=== PATIENT | female | born 1940 | race Caucasian/White ===

== ENCOUNTER 2016-06-04 09:20 | Emergency (ER) | payer MEDICARE, BC ==
[2016-06-04 10:07] VITALS: BP 149/67
--- NOTE | 2016-06-04 11:39 | UC ---
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 MUCOSA IS IRRITATED AND SORE. WORSE WITH EATING. SX STARTED THIS AM. pT HAS HAD THRUSH - History of Current Complaint Chief Complaint: UCGeneralIllness Stated Complaint: POSSIBLE THRUSH Time Seen by Provider: 06/04/16 10:58 Hx Obtained From: Patient Hx Last Menstrual Period: n/a Onset/Duration: Sudden Onset, Lasting Hours, Still Present Severity: Moderate Pain Intensity: 3 Cough: None Associated Signs & Symptoms: Negative: Negative, Dysphagia, Drooling, Wheezing, Hoarseness, Sinus Discomfort, Nasal Discharge, Fever, Vomiting, Rash - Allergies/Home Medications Allergies/Adverse Reactions: Allergies Allergy/AdvReac Type Severity Reaction Status Date / Time Aspirin Allergy Severe heart races Verified 06/04/16 10:07 PMH/Surg Hx/FS Hx/Imm Hx Endocrine History Of: Denies: Diabetes Cardiovascular History Of: Reports: Hypertension Denies: Pacemaker/ICD, Congestive Heart Failure Respiratory History Of: Reports: COPD GI/ History Of: Denies: Renal Disease - Surgical History Surgical History: Yes Surgery Procedure, Year, and Place: TUBAL LIGATION 1979; 2 X CATARACTS; - Family History Known Family History: Positive: Other - THYROID DZ Negative: Cardiac Disease, Hypertension, Diabetes - Social History Occupation: Retired Alcohol Use: None Substance Use Type: None Smoking Status (MU): Former Smoker Have You Smoked in the Last Year: No When Did the Patient Quit Smoking/Using Tobacco: 2012 Review of Systems Constitutional: Negative Skin: Negative Eyes: Negative ENT: Other - SEE HPI Respiratory: Negative Cardiovascular: Negative Gastrointestinal: Negative Genitourinary: Negative Motor: Negative Neurovascular: Negative Musculoskeletal: Negative Neurological: Negative Psychological: Negative All Other Systems Reviewed And Are Negative: Yes Physical Exam Triage Information Reviewed: Yes Appearance: Well-Appearing, No Pain Distress, Well-Nourished Vital Signs: Initial Vital Signs Temp 97.9 F 06/04/16 10:03 Pulse 72 06/04/16 10:03 Resp 14 06/04/16 10:03 BP 149/67 06/04/16 10:03 Pulse Ox 95 06/04/16 10:03 Vital Signs Reviewed: Yes Eyes: Positive: Conjunctiva Clear. Negative: Discharge ENT: Positive: Hearing grossly normal, Pharyngeal erythema, TMs normal, Other: - RED MUCOSA WITH WHITE PATCHES. Negative: Tonsillar swelling, Tonsillar exudate, Trismus, Muffled/hoarse voice Neck: Positive: Supple, Nontender, No Lymphadenopathy Respiratory: Positive: Lungs clear, Normal breath sounds, No respiratory distress, No accessory muscle use Cardiovascular: Positive: RRR, No Murmur Musculoskeletal Exam: Normal Neurological: Positive: Alert, Muscle Tone Normal Psychological: Positive: Age Appropriate Behavior Skin Exam: Normal Throat Pain/Nasal Course/Dx - Differential Dx/Diagnosis Differential Diagnosis/HQI/PQRI: Pharyngitis, Tonsillitis, Other - THRUSH Provider Diagnoses: THRUSH Discharge - Discharge Plan Condition: Stable Disposition: HOME Prescriptions: Nystatin SUSPENSION* 500,000 units .SEE ORDER QID #1 bottle Patient Education Materials: Oral Candidiasis (ED), Nystatin (By mouth) Referrals: Jonah Barnes MD [Primary Care Provider] - If Needed
== END 2016-06-04 11:48 | disposition home or self-care (01) ==
LOC: UCCORT 09:20
DX: B37.0 Candidal stomatitis (principal); Z85.819 Personal history of malignant neoplasm of unspecified site of lip, oral cavity, and pharynx; Z92.3 Personal history of irradiation; Z88.6 Allergy status to analgesic agent; I10 Essential (primary) hypertension; J44.9 Chronic obstructive pulmonary disease, unspecified; Z87.891 Personal history of nicotine dependence
CPT/HCPCS: 99212; G0463

== ENCOUNTER 2016-12-05 08:42 | Emergency (ER) | payer MEDICARE, BC ==
--- NOTE | 2016-12-05 09:04 | UC ---
Throat Pain/Nasal George HPI - HPI Summary HPI Summary: 76 yo female presents here with oral thrush on steroid inhaler she rinse mouth after use throat ca with RT - History of Current Complaint Chief Complaint: UCGI Stated Complaint: ORAL COMPLAINT Time Seen by Provider: 12/05/16 09:03 Hx Obtained From: Patient Hx Last Menstrual Period: n/a Onset/Duration: Gradual Onset, Lasting Days Severity: Mild Pain Intensity: 0 Pain Scale Used: 0-10 Numeric Associated Signs & Symptoms: Positive: Rash - Allergies/Home Medications Allergies/Adverse Reactions: Allergies Allergy/AdvReac Type Severity Reaction Status Date / Time Aspirin Allergy Severe heart races Verified 12/05/16 09:03 Home Medications: Home Medications Furosemide TAB* [Lasix TAB*] 40 mg PO DAILY 12/05/16 [History Confirmed 12/05/16 ] Oxygen Inhalation At Bedtime 2 unit INH BEDTIME 12/05/16 [History Confirmed 10/17] Tiotropium [place]-Olodaterol [Stiolto Respimat 2.5-2.5 Mcg/Act] 2 aer IN QAM [History Confirmed 12/05/16] PMH/Surg Hx/FS Hx/Imm Hx Previously Healthy: Yes Cancer History: Other Other Cancer History: throat - Surgical History Surgical History: Yes Surgery Procedure, Year, and Place: TUBAL LIGATION 1979; 2 X CATARACTS; - Family History Known Family History: Positive: None, Other - THYROID DZ Negative: Cardiac Disease, Hypertension, Diabetes - Social History Alcohol Use: None Substance Use Type: None Smoking Status (MU): Former Smoker Have You Smoked in the Last Year: No When Did the Patient Quit Smoking/Using Tobacco: 2012 Review of Systems Constitutional: Negative Skin: Negative Eyes: Negative ENT: Negative, Other - thrush Respiratory: Negative Cardiovascular: Negative Gastrointestinal: Negative Genitourinary: Negative Motor: Negative Neurovascular: Negative Musculoskeletal: Negative Neurological: Negative Psychological: Negative All Other Systems Reviewed And Are Negative: Yes Physical Exam Triage Information Reviewed: Yes Appearance: Well-Appearing, No Pain Distress, Well-Nourished Vital Signs: Initial Vital Signs Temp 97.9 F 12/05/16 08:53 Pulse 76 12/05/16 08:53 Resp 20 12/05/16 08:53 BP 120/64 12/05/16 08:53 Vital Signs Reviewed: Yes Eyes: Positive: Conjunctiva Clear ENT: Positive: Hearing grossly normal, Other: - white curdy d/c on tongue/under tongue and cheeks. Negative: Nasal congestion, TMs normal, Tonsillar swelling, Tonsillar exudate Neck: Positive: Supple Respiratory: Positive: Lungs clear, Normal breath sounds, No respiratory distress, No accessory muscle use Cardiovascular: Positive: RRR, No Murmur Musculoskeletal: Positive: ROM Intact, No Edema Neurological: Positive: Alert Psychological Exam: Normal Skin Exam: Normal Throat Pain/Nasal Course/Dx - Differential Dx/Diagnosis Provider Diagnoses: oral thrush Discharge - Discharge Plan Condition: Stable Disposition: HOME Prescriptions: Nystatin SUSPENSION* 100,000 unit .SEE ORDER QID PRN #[id number] PRN Reason: Rash Patient Education Materials: Oral Candidiasis (ED) Referrals: Jonah Barnes MD [Primary Care Provider] - If Needed
[2016-12-05 09:22] VITALS: BP 120/64
== END 2016-12-05 09:39 | disposition home or self-care (01) ==
LOC: UCCORT 08:42
DX: B37.0 Candidal stomatitis (principal); Z85.818 Personal history of malignant neoplasm of other sites of lip, oral cavity, and pharynx; Z98.49 Cataract extraction status, unspecified eye; Z88.6 Allergy status to analgesic agent; Z87.891 Personal history of nicotine dependence
CPT/HCPCS: 99212; G0463

== ENCOUNTER 2018-07-04 11:33 | Emergency (ER) | payer MEDICARE, BC ==
[2018-07-04 14:02] VITALS: BP 142/59
--- NOTE | 2018-07-04 14:59 | UC ---
Throat Pain/Nasal George HPI - HPI Summary HPI Summary: 77-year-old female with history of COPD presents with progressively worsening URI symptoms over the past 4-5 days. Complains of nasal congestion, frontal sinus pressure, bilateral ear fullness, mild sore throat, and a loose, occasionally productive cough. Denies fever, chills, chest pain, shortness of breath, wheezing, abdominal pain, nausea, vomiting, or diarrhea. - History of Current Complaint Chief Complaint: UCGeneralIllness Stated Complaint: SINUS CONGESTION Time Seen by Provider: 07/04/18 14:46 Hx Obtained From: Patient Hx Last Menstrual Period: n/a Pain Intensity: 0 - Allergies/Home Medications Allergies/Adverse Reactions: Allergies Allergy/AdvReac Type Severity Reaction Status Date / Time aspirin Allergy Palpitation Verified 07/04/18 11:58 s Home Medications: Home Medications Vitamin A CAP* 25,000 units PO DAILY 07/04/18 [History Confirmed 07/04/18] guaiFENesin [Mucinex] 600 mg PO BID 07/04/18 [History Confirmed 07/04/18] PMH/Surg Hx/FS Hx/Imm Hx Previously Healthy: Yes Endocrine History: Hypothyroidism Cardiovascular History: Hypertension Respiratory History: COPD - Surgical History Surgical History: Yes Surgery Procedure, Year, and Place: TUBAL LIGATION 1979; 2 X CATARACTS; - Family History Known Family History: Positive: None, Other - THYROID DZ Negative: Cardiac Disease, Hypertension, Diabetes - Social History Occupation: Retired Lives: Alone Alcohol Use: None Substance Use Type: None Smoking Status (MU): Former Smoker Have You Smoked in the Last Year: No When Did the Patient Quit Smoking/Using Tobacco: 2012 Review of Systems All Other Systems Reviewed And Are Negative: Yes Constitutional: Negative: Fever, Chills Skin: Negative: Rash Eyes: Negative: Drainage, Eye Redness ENT: Positive: Sore Throat, Ear Ache, Nasal Discharge, Sinus Congestion, Sinus Pain/Tenderness Respiratory: Positive: Cough. Negative: Shortness Of Breath Cardiovascular: Negative: Palpitations, Chest Pain Gastrointestinal: Negative: Abdominal Pain, Vomiting, Diarrhea, Nausea Genitourinary: Positive: Negative Musculoskeletal: Positive: Negative Neurological: Positive: Negative Is Patient Immunocompromised?: No Physical Exam - Summary Physical Exam Summary: GENERAL APPEARANCE: Well developed, well nourished, alert and cooperative, and appears to be in no acute distress. EYES: Conjunctiva clear. No discharge. Vision is grossly intact. EARS: External auditory canals and tympanic membranes clear, hearing grossly intact. NOSE: Mild-moderate nasal congestion. Mild tenderness to frontal sinuses with percussion. THROAT: Mild pharyngeal erytheam. No tonsilar inflammation, swelling, exudate, or lesions. NECK: Neck supple, non-tender without lymphadenopathy. CARDIAC: Normal S1 and S2. No S3, S4 or murmurs. Rhythm is regular. There is no peripheral edema, cyanosis or pallor. Extremities are warm and well perfused. Capillary refill is less than 2 seconds. LUNGS: Clear to auscultation without rales, rhonchi, wheezing or diminished breath sounds. Loose non-productive cough. ABDOMEN: Positive bowel sounds. Soft, nondistended, nontender. No guarding or rebound. No masses or hepatosplenomegally. MUSKULOSKELETAL: ROM intact to all extremities. No joint erythema or tenderness. Normal muscular development. Normal gait. SKIN: Skin normal color, texture and turgor with no lesions or eruptions. Triage Information Reviewed: Yes Vital Signs: Initial Vital Signs Temp 97.6 F 07/04/18 11:57 Pulse 87 07/04/18 11:57 Resp 16 07/04/18 11:57 BP 110/67 07/04/18 11:57 Pulse Ox 94 07/04/18 11:57 Vital Signs Reviewed: Yes Throat Pain/Nasal Course/Dx - Course Course Of Treatment: 77-year-old female with history of COPD presents with progressively worsening URI symptoms over the past 4-5 days. Complains of nasal congestion, frontal sinus pressure, bilateral ear fullness, mild sore throat, and a loose, occasionally productive cough. Denies fever, chills, chest pain, shortness of breath, wheezing, abdominal pain, nausea, vomiting, or diarrhea. Afebrile. Vital signs stable. Exam reveals older adult female in no acute distress with a mild amount of nasal congestion, mild frontal sinus tenderness with percussion, mild pharyngeal erythema, clear bilateral breath sounds, and a loose nonproductive cough. Considering the progressive worsening of her symptoms and her history of COPD we'll treat her for an upper respiratory infection with a course of azithromycin as well as symptomatic treatment. She is to follow-up with a primary care provider in 5 days if symptoms do not improve. Anticipatory guidance and warning symptoms were reviewed with the patient. She verbalizes understanding and agrees with plan of care. - Differential Dx/Diagnosis Differential Diagnosis/HQI/PQRI: Influenza, Pharyngitis, Sinusitis, URI Provider Diagnosis: Upper respiratory infection with cough and congestion, COPD (chronic obstructive pulmonary disease) Discharge - Sign-Out/Discharge Documenting (check all that apply): Patient Departure All imaging exams completed and their final reports reviewed: No Studies - Discharge Plan Condition: Stable Disposition: HOME Prescriptions: Azithromyxin VISHNU (NF) [Z-Vishnu (Zithromax) 250 mg tabs #6] 2 tab PO .TODAY, THEN 1 DAILY #6 tab Patient Education Materials: Upper Respiratory Infection (ED) Referrals: Zayra Kessler MD [Primary Care Provider] - 5 Days (If no improvement in your symptoms.) Additional Instructions: Your symptoms are consistent with an upper respiratory infection. With your history of COPD we will treat your infection with an antibiotic. Take azithromycin 2 tabs today then 1 tab a day for next 4 days. Drink plenty of fluids to avoid dehydration especially if you are running any fever. Continue to use your inhaler as prescribed. Take over the counter acetaminophen (Tylenol) according to directions as needed for pain or fever. Use salt water gargles several times a day if you have a sore throat. You may also use Chloraseptic spray or Cepacol lonzenges according to directions which contain a numbing medication and can provide some temporary relief from your sore throat. Follow up with your primary care provider in 5 days if symptoms persist. Seek immediate medical attention in the emergency room if you have fever greater than 100.5 F despite taking acetaminophen or ibuprofen, have chest pain , difficulty breathing, are unable to swallow, or have any worsening of symptoms. - Billing Disposition and Condition Condition: STABLE Disposition: Home
== END 2018-07-04 15:17 | disposition home or self-care (01) ==
LOC: UCCORT 11:33
DX: J06.9 Acute upper respiratory infection, unspecified (principal); R05 Cough; R09.81 Nasal congestion; I10 Essential (primary) hypertension; J44.9 Chronic obstructive pulmonary disease, unspecified; Z88.8 Allergy status to other drugs, medicaments and biological substances; Z87.891 Personal history of nicotine dependence
CPT/HCPCS: 99212; G0463

== ENCOUNTER 2019-07-06 13:48 | Emergency (ER) | payer MEDICARE, BC ==
--- OUTSIDE RECORDS SUMMARY | 2019-07-06 14:02 | XMS REPORT | Continuity of Care Document ---
:1940 External Reference #:[id number] Author Name Emir eKlley MD Address [address] [place] [address] Care Team Providers Name Role Phone Zayra Kessler MD - Internal Medicine Care Team Information Building Code Administrator [phone] Marylu Bailey MD - Anesthesiology Care Team Information Building Code Administrator Emir Kelley MD - Pulmonary Care Team Information Building Code Administrator Disease Problems Active Problems Provider Date Pure hypercholesterolemia Zayra Kessler MD Onset: 09/03/2017 Polymyalgia rheumatica Zayra Kessler MD Onset: 09/09/2017 Essential hypertension Zayra Kessler MD Onset: 09/09/2017 Hyperlipidemia Zayra Kessler MD Onset: 09/09/2017 Edema Zayra Kessler MD Onset: 09/09/2017 Hypothyroidism Zayra Kessler MD Onset: 09/09/2017 Age-related 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 Zayra Kessler MD Onset: 09/09/2017 pathological fracture Chronic obstructive lung disease Zayra Kessler MD Onset: 10/24/2017 Abnormal glucose level Zayra Kessler MD Onset: 10/24/2017 Social History Type Date Description Comments Sex Unknown Tobacco Use Start: Unknown End: Former Cigarette Smoker Unknown Smoking Status Reviewed: 05/15/19 Former Cigarette Smoker ETOH Use Denies alcohol use Tobacco Use Start: Unknown End: Patient is a former smoker Recreational Drug Use Denies Drug Use Exercise Type/Frequency Exercises sporadically Allergies, Adverse Reactions, Alerts Active Allergies Reaction Severity Comments Date Aspirin rapid heart rate 09/09/2017 Medications Active Medications SIG Qnty Indications Ordering Date Provider Albuterol Sulfate nebulized every 4 540ml Allie, 04/07/2019 hours as needed MD Emir (2.5mg/3ML) 0.083% Nebulizer Portable Oxygen oxygen 3 L/min via 1units Dm Liz MD 11/05/2018 Concentrator nc continuous Dx: j44.9 Nystatin Use 4-6ML In Swish 946ml Zayra Kessler, 10/23/2018 129307Enle/ML & Spit 4 Times A MD Suspension Day & Swallow For Thrush as Needed Proair Respiclick take one or two 1units R05 Dm Liz MD 05/23/2018 puffs every 4-6 108(90Base) mcg/Act hours as needed Aerosol for sob Stiolto Respimat Inhale Two Puffs Unknown By Mouth Daily 2.5-2.5mcg/Act Aerosol Vitamin D3 1 by mouth every Unknown 1000Unit day Capsules Clotrimazole Dissolve One Unknown 10mg Tablet By Mouth Dawood Over 15 30 Minutes 5 Times A Day as Needed For Thrush Prednisone Take 1 tablet a Unknown 10mg Tablets day. Vitamin A 1 capsule daily. Unknown 2400mcg Capsules Mucinex 1 tab by mouth Unknown 600mg Tablets twice a day ER 12HR congestion take with lots of fluids Levothyroxine Sodium take 1 tablet by 90tabs Shi Kesslera, mouth once daily 25mcg Tablets Multivitamin Adult 1 by mouth every Unknown day Tablets Calcium 600 1 by mouth every Unknown 600mg day Tablets Cartia XT take one capsule 90caps Checo, Zayra, 180mg Caps ER by mouth every day 24HR Alendronate Sodium take one tablet by 12tabs Brianne Olivarez, 70mg mouth every week , PHD Tablets Furosemide take 1 tablet once 90tabs Checo, Zayra, 40mg Tablets daily MD History Medications Albuterol Sulfate every 6 hours 90ml J43.1 Emir Kelley, 2018 - as needed 04/07/2019 (2.5mg/3ML) 0.083% Nebulizer Immunizations CPT Code Status Date Vaccine Lot # [id number] Given 02/28/2018 Influenza High Dose [id number] Given 10/24/2017 Tdap injection [id number] Given 10/24/2017 Pneumococcal Conjugate Vaccine 13 Valent For [id number] Intramuscular Use Vital Signs Date Vital Result Comment 05/15/2019 2:14pm BP Systolic Sitting Left Arm 100 mmHg BP Diastolic Sitting Left Arm 50 mmHg Heart Rate 72 /min Respiratory Rate 18 /min Height 65 inches 5'5" Weight 131.00 lb BMI (Body Mass Index) 21.8 kg/m2 BSA (Body Surface Area) 1.65 m2 [place] body weight in kilograms 57 kg O2 % BldC Oximetry 923 % 04/17/2019 1:44pm BP Systolic Sitting Left Arm 129 mmHg BP Diastolic Sitting Left Arm 59 mmHg Heart Rate 88 /min Respiratory Rate 16 /min Height 65 inches 5'5" Weight 134.00 lb BMI (Body Mass Index) 22.3 kg/m2 BSA (Body Surface Area) 1.67 m2 [place] body weight in kilograms 57 kg O2 % BldC Oximetry 91 % nc/3l Results Test Acquired Date Facility Test Result H/L Range Note CBC 03/02/2019 [facility] White Blood 9.5 K/uL Normal 3.1-10.7 1 W/Automated [address] [place] [address] [phone] Red Blood Count 4.04 M/uL Normal 3.90-5.40 Hemoglobin 12.2 gm/dL Normal 11.6-15.8 Hematocrit 38.8 % Normal 36.0-46.1 Mean Cell Volume 96.0 fl Normal 80.9-99.0 Mean Corpuscular HGB 30.2 pg Normal 25.9-32.7 Mean Corpuscular HGB Conc 31.4 g/dL Normal 30.8-34.3 Platelet Count 283 K/uL Normal 155-360 Red Cell Distri Width SD 55.8 fl High 36-47 Red Cell Distri Width %CV 15.8 % High 11.7-14.4 Mean Platelet Volume 8.9 fl Normal 8.9-12.4 Neut% 88.3 % High 40.4-72.8 Lymph % 2.3 % Low 20.0-42.0 Cow[place] % 2.4 % Low 4.3-13.2 Eo% 1.5 % Normal 0.0-6.6 Bas% 0.5 % Normal 0.0-1.1 Immature Grans 5.0 % Normal 0.0-5.0 NRBC % 0.4 /100WBC < 10/ 100 WBC Neut# 8.42 K/uL High 1.8-7.0 Lymph # 0.22 K/uL Low 1.0-4.0 Cowley # 0.23 K/uL Low 0.3-0.9 Eos # 0.14 K/uL Normal 0.0-0.5 Baso # 0.05 K/uL Normal 0.0-0.1 Immature Grans Absolute 0.48 K/uL NRBC # 0.04 K/uL Basic Metabolic Panel 03/02/2019 [facility] Glucose 131 mg/dL High 74-[address] [place] [address] [phone] BUN 23 mg/dL High 7-18 Creatinine 0.9 mg/dL Normal 0.6-1.3 Glom Filtration Rate, Estimate >60 mL/min >60 If >60 mL/min >60 2 BUN/Creat 25.5 ratio Sodium 142 mmol/L Normal 136-145 Potassium 4.1 mmol/L 3.5-5.1 Chloride 107 mmol/L Normal 98-107 Carbon Dioxide 25 mmol/L Normal 21-32 Anion Gap 10 mEq/L Normal 8-16 Calcium 8.1 mg/dL Low 8.5-10.1 CBC W/Automated 03/01/2019 [facility] White Blood 11.6 K/uL High 3.1-10.[address] [place] [address] [phone] Red Blood Count 3.70 M/uL Low 3.90-5.40 Hemoglobin 11.5 gm/dL Low 11.6-15.8 Hematocrit 35.5 % Low 36.0-46.1 Mean Cell Volume 95.9 fl Normal 80.9-99.0 Mean Corpuscular HGB 31.1 pg Normal 25.9-32.7 Mean Corpuscular HGB Conc 32.4 g/dL Normal 30.8-34.3 Platelet Count 288 K/uL Normal 155-360 Red Cell Distri Width SD 56.0 fl High 36-47 Red Cell Distri Width %CV 15.9 % High 11.7-14.4 Mean Platelet Volume 9.0 fl Normal 8.9-12.4 Neut% 92.8 % High 40.4-72.8 Lymph % 2.2 % Low 20.0-42.0 Cowley % 2.2 % Low 4.3-13.2 Eo% 0.7 % Normal 0.0-6.6 Bas% 0.2 % Normal 0.0-1.1 Immature Grans 1.9 % Normal 0.0-5.0 NRBC % 0.0 /100WBC < 10/ 100 WBC Neut# 10.78 K/uL High 1.8-7.0 Lymph # 0.26 K/uL Low 1.0-4.0 Cowley # 0.25 K/uL Low 0.3-0.9 Eos # 0.08 K/uL Normal 0.0-0.5 Baso # 0.02 K/uL Normal 0.0-0.1 Immature Grans Absolute 0.22 K/uL NRBC # 0.00 K/uL Basic Metabolic Panel 03/01/2019 [facility] Glucose 131 mg/dL High 74-[address] [place] [address] [phone] BUN 23 mg/dL High 7-18 Creatinine 0.9 mg/dL Normal 0.6-1.3 Glom Filtration Rate, Estimate >60 mL/min >60 If >60 mL/min >60 3 BUN/Creat 25.5 ratio Sodium 140 mmol/L Normal 136-145 Potassium 3.4 mmol/L Low 3.5-5.1 Chloride 108 mmol/L High 98-107 Carbon Dioxide 26 mmol/L Normal 21-32 Anion Gap 6 mEq/L Low 8-16 Calcium 7.9 mg/dL Low 8.5-10.1 CBC W/Automated 02/28/2019 [facility] White Blood 13.0 K/uL High 3.1-10.[address] [place] [address] [phone] Red Blood Count 3.74 M/uL Low 3.90-5.40 Hemoglobin 11.8 gm/dL Normal 11.6-15.8 Hematocrit 35.5 % Low 36.0-46.1 Mean Cell Volume 94.9 fl Normal 80.9-99.0 Mean Corpuscular HGB 31.6 pg Normal 25.9-32.7 Mean Corpuscular HGB Conc 33.2 g/dL Normal 30.8-34.3 Platelet Count 268 K/uL Normal 155-360 Red Cell Distri Width SD 55.2 fl High 36-47 Red Cell Distri Width %CV 15.9 % High 11.7-14.4 Mean Platelet Volume 9.1 fl Normal 8.9-12.4 Neut% 94.6 % High 40.4-72.8 Lymph % 1.6 % Low 20.0-42.0 Cowley % 2.2 % Low 4.3-13.2 Eo% 0.5 % Normal 0.0-6.6 Bas% 0.2 % Normal 0.0-1.1 Immature Grans 0.9 % Normal 0.0-5.0 NRBC % 0.0 /100WBC < 10/ 100 WBC Neut# 12.28 K/uL High 1.8-7.0 Lymph # 0.21 K/uL Low 1.0-4.0 Cowley # 0.28 K/uL Low 0.3-0.9 Eos # 0.07 K/uL Normal 0.0-0.5 Baso # 0.02 K/uL Normal 0.0-0.1 Immature Grans Absolute 0.12 K/uL NRBC # 0.00 K/uL Basic Metabolic Panel 02/28/2019 [facility] Glucose 133 mg/dL High 74-106 [address] [place] [address] [phone] BUN 18 mg/dL Normal 7-18 Creatinine 0.8 mg/dL Normal 0.6-1.3 Glom Filtration Rate, Estimate >60 mL/min >60 If >60 mL/min >60 4 BUN/Creat 22.5 ratio Sodium 144 mmol/L Normal 136-145 Potassium 3.4 mmol/L Low 3.5-5.1 Chloride 109 mmol/L High 98-107 Carbon Dioxide 25 mmol/L Normal 21-32 Anion Gap 10 mEq/L Normal 8-16 Calcium 7.7 mg/dL Low 8.5-10.1 Laboratory test 02/27/2019 [facility] Slide Review (SEE NOTE) 5 finding [address] [place] [address] [phone] CBC W/Automated 02/27/2019 [facility] White Blood 15.7 K/uL High 3.1-[address] Count [address] [place] [address] [phone] Red Blood Count 3.67 M/uL Low 3.90-5.40 Hemoglobin 11.5 gm/dL Low 11.6-15.8 Hematocrit 35.5 % Low 36.0-46.1 Mean Cell Volume 96.7 fl Normal 80.9-99.0 Mean Corpuscular HGB 31.3 pg Normal 25.9-32.7 Mean Corpuscular HGB Conc 32.4 g/dL Normal 30.8-34.3 Platelet Count 244 K/uL Normal 155-360 Red Cell Distri Width SD 55.6 fl High 36-47 Red Cell Distri Width %CV 15.6 % High 11.7-14.4 Mean Platelet Volume 9.0 fl Normal 8.9-12.4 Neut% 94.7 % High 40.4-72.8 Lymph % 1.7 % Low 20.0-42.0 Cowley % 1.5 % Low 4.3-13.2 Eo% 0.4 % Normal 0.0-6.6 Bas% 0.2 % Normal 0.0-1.1 Immature Grans 1.5 % Normal 0.0-5.0 NRBC % 0.0 /100WBC < 10/ 100 WBC Neut# 14.85 K/uL High 1.8-7.0 Lymph # 0.27 K/uL Low 1.0-4.0 Cowley # 0.24 K/uL Low 0.3-0.9 Eos # 0.06 K/uL Normal 0.0-0.5 Baso # 0.03 K/uL Normal 0.0-0.1 Immature Grans Absolute 0.24 K/uL NRBC # 0.00 K/uL Laboratory test 02/27/2019 [facility] NT-proBNP 435.0 pg/mL <[address] [place] [address] [phone] Basic Metabolic 02/27/2019 [facility] Glucose 134 mg/dL High 74-[address] [place] [address] [phone] BUN 15 mg/dL Normal 7-18 Creatinine 0.8 mg/dL Normal 0.6-1.3 Glom Filtration Rate, Estimate >60 mL/min >60 If >60 mL/min >60 6 BUN/Creat 18.7 ratio Sodium 142 mmol/L Normal 136-145 Potassium 3.9 mmol/L Normal 3.5-5.1 Chloride 109 mmol/L High 98-107 Carbon Dioxide 25 mmol/L Normal 21-32 Anion Gap 8 mEq/L Normal 8-16 Calcium 7.5 mg/dL Low 8.5-10.1 Lactic Acid 02/27/2019 [facility] Lactic Acid 1.1 mmol/L Normal 0.4-1.[address] [place] [address] [phone] Lab Reflex >2.0 for Sepsis? Y Legionella 02/27/2019 [facility] Legionella Legionella 7, [address] Culture Speci <[place] [address] NOTE> [phone] Laboratory 02/27/2019 [facility] Legionella Negative Negative 9, test finding [address] Urinary [address] [place] [address] Antigen [phone] CBC 02/26/2019 [facility] White Blood 15.2 K/uL High 3.1-10.7 11 W/Automated [address] [place] [address] [phone] Red Blood Count 4.62 M/uL Normal 3.90-5.40 Hemoglobin 14.4 gm/dL Normal 11.6-15.8 Hematocrit 44.9 % Normal 36.0-46.1 Mean Cell Volume 97.2 fl Normal 80.9-99.0 Mean Corpuscular HGB 31.2 pg Normal 25.9-32.7 Mean Corpuscular HGB Conc 32.1 g/dL Normal 30.8-34.3 Platelet Count 281 K/uL Normal 155-360 Red Cell Distri Width SD 54.6 fl High 36-47 Red Cell Distri Width %CV 15.3 % High 11.7-14.4 Mean Platelet Volume 8.6 fl Low 8.9-12.4 Neut% 82.5 % High 40.4-72.8 Lymph % 12.3 % Low 20.0-42.0 Cowley % 3.9 % Low 4.3-13.2 Eo% 0.1 % Normal 0.0-6.6 Bas% 0.3 % Normal 0.0-1.1 Immature Grans 0.9 % Normal 0.0-5.0 NRBC % 0.0 /100WBC < 10/ 100 WBC Neut# 12.55 K/uL High 1.8-7.0 Lymph # 1.87 K/uL Normal 1.0-4.0 Cowley # 0.60 K/uL Normal 0.3-0.9 Eos # 0.02 K/uL Normal 0.0-0.5 Baso # 0.04 K/uL Normal 0.0-0.1 Immature Grans Absolute 0.14 K/uL NRBC # 0.00 K/uL Laboratory 02/26/2019 [facility] Troponin-I < 0.015 12, 13 test finding [address] ng/[place] [address] [phone] Laboratory 02/26/2019 [facility] Lactic Acid 4.0 Critical 0.4 14 test finding [address] mmol/L high -1. [place] [address] 9 [phone] Blood Culture 02/26/2019 [facility] Blood Culture NO [address] Aerobic GROWTH: [place] [address] FINAL [phone] <SEE NOTE> Blood Culture Anaerobic NO GROWTH: FINAL <SEE NOTE> 16 Venous Blood Gas 02/26/2019 [facility] Venous Blood Gas 7.48 High 7.31-7.[address] [place] [address] [phone] Venous Blood Gas Pco2 37 mmHg Low 45-50 Venous Blood Gas Po2 101 mmHg Critical high 40-60 Venous Blood Gas Hco3 26.3 mEq/L Venous Blood Gas Base XS 2.9 mEq/L Venous Blood Gas OS Sat. 98.2 % Critical high 60-80 Blood Culture 02/26/2019 [facility] Blood Culture NO GROWTH: FINAL [address] Aerobic <SEE NOTE> [place], [place] [address] [phone] Blood Culture Anaerobic NO GROWTH: FINAL <SEE NOTE> 18 Lactic Acid 02/26/2019 [facility] Lactic Acid 2.6 mmol/L Critical 0.4-1.[address] [place], [place] [address] [phone] Lab Reflex >2.0 for Sepsis? Y Laboratory test 02/26/2019 [facility] Troponin-I 0.045 19, [address] ng/[place] [address] [phone] Protein/Creatin 01/07/2019 [facility] Creatinine,Urin 70.6 Not 21 ine Ratio,Urine [address] e mg/dL Estab. [place], [place] [address] [phone] Protein,Total,Urine 24.8 mg/dL Not Estab. Protein/Creatinine Ratio 351 MG/GCRE High 0-200 22 Urine Culture 01/07/2019 [facility] Urine Culture URETHRAL ADAM [address] [place], [place] [address] [phone] Quantity < 10,000 CFU/mL Ua RFX Micro & Culture 01/07/2019 [facility] Urine Color YELLOW Yellow II [address] [place], [place] [address] [phone] Urine Clarity CLEAR Clear Urine Glucose - Dipstick NEGATIVE mg/dL Negative Urine Bilirubin - Dipstick NEGATIVE Negative Urine Ketone NEGATIVE mg/dL Negative Urine Specific [place] 1.010 Normal 1.010-1.030 Urine Blood NEGATIVE Negative Urine PH 5.5 Low 6.5-7.5 Urine Protein - Dipstick NEGATIVE mg/dL Negative Urine Urobilinogen - Dipstick 0.2 E.U./dL Normal 0.2-1.0 Urine Nitrite - Dipstick NEGATIVE Negative Urine Leuk Esterase SMALL Abnormal Negative Urine RBC 0-2 rbc/hpf 0-2 Urine WBC 20-30 wbc/hpf High 0-7 Urine Epithelial Cells FEW /lpf None Seen Urine Bacteria VERY FEW None Seen Urine Hyaline Cast 5-7 #/lpf None Seen Source: URINE, CLEAN CAT <SEE NOTE> 23 Laboratory test 01/01/2019 [facility] Urine Random 174.72 mg/dL finding [phone] Creatinine Urine Random Total Protein 20 mg/dL Urinalysis Profile 01/01/2019 [facility] Urine Color Yellow [phone] Urine Appearance Cloudy Urine Specific [place] 1.014 Normal 1.010-1.030 Urine pH 7.0 Normal 5-9 Urine Urobilinogen Negative Negative Urine Ketones Negative Negative Urine Protein Negative Negative Urine Leukocytes 3+ Abnormal Negative Urine Blood Negative Negative Urine Nitrite Negative Negative Urine Bilirubin Negative Negative Urine Glucose Negative Negative Urine White Blood Cell 3+(>20/hpf) Abnormal Absent Urine Red Blood Cell Trace(0-2/hpf) Absent Urine Bacteria 2+ Abnormal Absent Urine Squamous Epithelial Cell Present Abnormal Absent Urine Hyaline Casts Present Abnormal Absent Urine Calcium Oxalate Cryst Present Abnormal Absent Comp Metabolic 01/01/2019 [facility] Sodium 143 mmol/ L Normal 135-145 Panel [phone] Potassium 3.5 mmol/L Normal 3.5-5.0 Chloride 104 mmol/L Normal 101-111 Co2 Carbon Dioxide 30 mmol/L Normal 22-32 Anion Gap 9 mmol/L Normal 2-11 Glucose 73 mg/dL Normal 70-100 Blood Urea Nitrogen 17 mg/dL Normal 6-24 Creatinine 1.06 mg/dL High 0.51-0.95 BUN/Creatinine Ratio 16.0 Normal 8-20 Calcium 9.3 mg/dL Normal 8.6-10.3 Total Protein 6.3 g/dL Low 6.4-8.9 Albumin 4.0 g/dL Normal 3.2-5.2 Globulin 2.3 g/dL Normal 2-4 Albumin/Globulin Ratio 1.7 Normal 1-3 Total Bilirubin 0.50 mg/dL Normal 0.2-1.0 Alkaline Phosphatase 50 U/L Normal 34-104 Alt 17 U/L Normal 7-52 Ast 23 U/L Normal 13-39 Egfr Non- 50.4 >60 Egfr 61.0 >60 24 Lipid Profile 01/01/2019 [facility] Triglycerides 238 mg/dL 25 (Trig/Chol/HDL) [phone] Cholesterol 283 mg/dL 26 HDL Cholesterol 79.0 mg/dL 27 LDL Cholesterol 156 mg/dL 28 Laboratory test 01/01/2019 [facility] Phosphorus 2.9 mg/dL Normal 2.5-5.0 finding [phone] Magnesium 2.2 mg/dL Normal 1.9-2.7 TSH (Thyroid Stim Horm) 4.84 mcIU/mL Normal 0.34-5.60 Free T4 (Free Thyroxine) 1.17 ng/dL High 0.61-1.12 Vitamin D Total 25(Oh) 46.6 ng/mL Normal 20-50 29 Hemoglobin A1c (Glyco HGB) 5.9 % High 4.0-5.6 30 Urine Culture And 01/01/2019 [facility] Urine Culture SEE RESULT 31 Sensitivities [phone] BELOW 1 ACUTE RESPIRATORY FAILURE 2 Note: Persistent reduction for 3 months or more in an eGFR <60 mL/min/1.73 m2 defines CKD. Patients with eGFR values >/=60 mL/min/1.73 m2 may also have CKD if evidence of persistent proteinuria is present. The original MDRD equation for estimated GFR is not valid for patients less than 18 years of age. Additional information may be found at www.[email or web address]. 3 Note: Persistent reduction for 3 months or more in an eGFR <60 mL/min/1.73 m2 defines CKD. Patients with eGFR values >/=60 mL/min/1.73 m2 may also have CKD if evidence of persistent proteinuria is present. The original MDRD equation for estimated GFR is not valid for patients less than 18 years of age. Additional information may be found at [email or web address]. 4 Note: Persistent reduction for 3 months or more in an eGFR <60 mL/min/1.73 m2 defines CKD. Patients with eGFR values >/=60 mL/min/1.73 m2 may also have CKD if evidence of persistent proteinuria is present. The original MDRD equation for estimated GFR is not valid for patients less than 18 years of age. Additional information may be found at www.[email or web address]. 5 Instrument flagged sample for slide review. Less than 10% Bands seen, no other immature WBC's seen. RBC morphology essentially normal. Platelet estimate = NORMAL 6 Note: Persistent reduction for 3 months or more in an eGFR <60 mL/min/1.73 m2 defines CKD. Patients with eGFR values >/=60 mL/min/1.73 m2 may also have CKD if evidence of persistent proteinuria is present. The original MDRD equation for estimated GFR is not valid for patients less than 18 years of age. Additional information may be found at [email or web address]. 7 $174 FLU SHOT 8 Legionella Species Culture Report: No Legionella species isolated. Performed at: [address] [id number] Furniture Mover: Yessenia Echeverria MD, Phone: [phone] 9 ACUTE RESPIRATORY FAILURE 10 Presumptive negative for L. pneumophila serogroup 1 antigen in urine, suggesting no recent or current infection. Legionnaires' disease cannot be ruled out since other serogroups and species may also cause disease. 11 POSS PNEUMONIA 12 ACUTE RESPIRATORY FAILURE 13 0.0 - 0.045 ng/mL: Normal 0.046 - 0.5 ng/mL: Suggestive 0.6 - 1.5 ng/mL: Consistent 14 [place] [address]/26/19 by [email or web address] 15 NO GROWTH: FINAL REPORT 16 NO GROWTH: FINAL REPORT 17 NO GROWTH: FINAL REPORT 18 NO GROWTH: FINAL REPORT 19 POSS PNEUMONIA 20 0.0 - 0.045 ng/mL: Normal 0.046 - 0.5 ng/mL: Suggestive 0.6 - 1.5 ng/mL: Consistent 21 R82.71 22 INFCE Result Units: mg/g creat Performed at: [address] [id number] Furniture Mover: Yessenia Echeverria MD, Phone: [phone] 23 URINE, CLEAN CATCH 24 Because ethnic data is not always readily available, this report includes an eGFR for both -Americans and non- Americans. The National Kidney Disease Education Program (NKDEP) does not endorse the use of the MDRD equation for patients that are not between the ages of 18 and 70, are , have extremes of body size, muscle mass, or nutritional status, or are non- or non-. According to the National Kidney Foundation, irrespective of diagnosis, the stage of the disease is based on the level of kidney function: Stage Description GFR(mL/min/1.73 m(2)) 1 Kidney damage with normal or decreased GFR 90 2 Kidney damage with mild decrease in GFR 60-89 3 Moderate decrease in GFR 30-59 4 Severe decrease in GFR 15-29 5 Kidney failure <15 (or dialysis) 25 Desirable: <150 Borderline High: 150-199 High: 200-499 Very High: >500 26 Desirable: <200 Borderline High: 200-239 High: >239 27 Low: <40 Desirable: 40-60 High: >60 28 Desirable: <100 Near Optimal: 100-129 Borderline High: 130-159 High: 160-189 Very High: >189 29 Total 25-Hydroxyvitamin D2 and D3 (25-OH-VitD) <10 ng/mL (severe deficiency) 10-19 ng/mL (mild to moderate deficiency) 20-50 ng/mL (optimum levels) 51-80 ng/mL (increased risk of hypercalciuria) >80 ng/mL (toxicity possible) 30 Therapeutic target for the treatment of diabetes mellitus patients is <7% HBA1C, and in selective patients <6.0%. Please refer to [employer] diabetic care guidelines for further information. 31 SEE RESULT BELOW Name: JORGE LUIS JUAREZ : [address]: Zayra Kessler MD Acct: [id number] Unit: [id number] AGE: 78 Location: [facility] Re01/01/19 SEX: F Status: REG REF SPEC: [id number] ELIE: 01/01/[address]: Zayra Kessler MD REQ: [id number] RECD: 01/01/19 STATUS: COMP _ SOURCE: URINE SPDESC: ORDERED: Urine Culture QUERIES: Urine Source: Clean Catch Procedure Result Reported Site Urine Culture Final 01/03/19- 1031 ML Organism 1 [facility] [place] Count >100,000 (Many) CFU/ML 1. [facility] RX --------- ------ Cefazolin >=64 R Cefepime <=1 S Ceftriaxone <=1 S Ciprofloxacin <=0.25 S Gentamicin <=1 S Levofloxacin <=0.12 S Meropenem <=0.25 S Nitrofurantoin <=16 S Tetracycline <=1 S Pipercillin/Tazobactam <=4 S Trimethoprim/Sulfamethoxazole <=20 S Amoxicillin/Clavulanic Acid R Aztreonam <=1 S Contact the Microbiology Department for any additional antibiotic reporting. * [facility] - Main Lab . END OF REPORT DEPARTMENT OF PATHOLOGY, [address] [place] [address] Damien Lau M.D. Director [facility] # [id number] Procedures Date Code Description Status 04/10/2019 53574 Pulmonary Stress Testing, Inc Measurement Heart Rate, Completed Oximetry 04/10/2019 15764 Pulmonary Stress Test Simple Completed 04/08/2019 28689 Stress Test Interpre And Report Only Completed 04/08/2019 33070 Stress Test Physician Super Only Completed 04/08/2019 41781 Myocardial Imaging Tomographic Multiple Study AT Rest Completed Or Stress 03/23/2019 81910 EKG-Tracing And Report Completed 01/27/2019 [id number] Mammogram Completed 01/02/2018 [id number] Mammogram Completed 03/03/2017 [id number] Bone Mineral Density Test Completed 06/03/2012 [id number] Colonoscopy Completed Medical Devices Description No Information Available Encounters Type Date Location Provider Dx Diagnosis Office Visit 04/17/2019 Cardiology Office Neil Hernandez R06.02 Shortness of 1:40p B., [place] breath E78.5 Hyperlipidemia, unspecified R60.0 Localized edema Office Visit 04/03/2019 Pulmonology Allie J96.11 Chronic 3:30p MD Emir respiratory failure with hypoxia J43.1 Panlobular emphysema Office Visit 03/23/2019 2:00p Cardiology Office David R06.02 Shortness of Marlyss B., PA breath E78.5 Hyperlipidemia, unspecified J44.1 Chronic obstructive pulmonary disease w (acute) exacerbation Office Visit 03/20/2019 Pulmonology Allie J44.1 Chronic 3:00p MD Emir obstructive pulmonary disease w (acute) exacerbation J43.1 Panlobular emphysema J96.11 Chronic respiratory failure with hypoxia Office Visit 01/07/2019 1:20p Primary Care Zayra Kessler, I10 Essential ( primary) Office hypertension E78.5 Hyperlipidemia, unspecified E03.9 Hypothyroidism, unspecified M51.16 Intervertebral disc disorders w radiculopathy, lumbar region J44.9 Chronic obstructive pulmonary disease, unspecified R82.71 Bacteriuria R73.9 Hyperglycemia, unspecified Z12.31 Encntr screen mammogram for malignant neoplasm of breast Assessments Date Code Description Provider 05/15/2019 J43.1 Panlobular emphysema Emir Kelley MD 05/15/2019 J96.11 Chronic hypoxemic respiratory failure Emir Kelley MD 04/17/2019 R06.02 Shortness of breath Neil Hernandez, PA 04/17/2019 E78.5 Hyperlipidemia, unspecified Neil Hernandez, PA 04/17/2019 R60.0 Localized edema Neil Hernandez, PA 04/10/2019 J43.9 Emphysema, unspecified Emir Kelley MD 04/10/2019 J43.1 Panlobular emphysema Emir Kelley MD 04/08/2019 R06.02 Shortness of breath Anson Cheung M.D., [facility] 04/03/2019 J96.11 Chronic hypoxemic respiratory failure Emir Kelley MD 04/03/2019 J43.1 Panlobular emphysema Emir Kelley MD 03/23/2019 R06.02 Shortness of breath Neil Hernandez, PA 03/23/2019 E78.5 Hyperlipidemia, unspecified Neil Hernandez, PA 03/23/2019 J44.1 Chronic obstructive pulmonary disease Neil Hernandez, PA with (acute) exacerbation 03/20/2019 J44.1 Chronic obstructive pulmonary disease Emir Kelley MD with (acute) exacerbation 03/20/2019 J43.1 Panlobular emphysema Emir Kelley MD 03/20/2019 J96.11 Chronic hypoxemic respiratory failure Emir Kelley MD 03/02/2019 J18.9 Pneumonia, unspecified organism Rodo Jacome M.D. 03/02/2019 A41.9 Sepsis, unspecified organism Rodo Jacome M.D. 03/02/2019 J96.01 Acute respiratory failure with hypoxia Rodo Jacome M.D. 03/02/2019 J44.1 Chronic obstructive pulmonary disease Rodo Jacome M.D. with (acute) exacerbation 03/01/2019 J18.9 Pneumonia, unspecified organism Guevara Meyers MD 03/01/2019 A41.9 Sepsis, unspecified organism Guevara Meyers MD 03/01/2019 J96.01 Acute respiratory failure with hypoxia Guevara Meyers MD 03/01/2019 R79.89 Other specified abnormal findings of Guevara Meyers MD blood chemistry 02/28/2019 J18.9 Pneumonia, unspecified organism Guevara Meyers MD 02/28/2019 A41.9 Sepsis, unspecified organism Guevara Meyers MD 02/28/2019 J96.01 Acute respiratory failure with hypoxia Guevara Meyers MD 02/28/2019 R79.89 Other specified abnormal findings of Guevara Meyres MD blood chemistry 02/27/2019 J96.21 Acute and chronic respiratory failure Emir Kelley MD with hypoxia 02/27/2019 J18.9 Pneumonia, unspecified organism Guevara Meyers MD 02/27/2019 J43.1 Panlobular emphysema Emir Kelley MD 02/27/2019 A41.9 Sepsis, unspecified organism Guevara Meyers MD 02/27/2019 R91.8 Other nonspecific abnormal finding of Emir Kelley MD lung field 02/27/2019 J96.01 Acute respiratory failure with hypoxia Guevara Meyers MD 02/27/2019 Z99.81 Dependence on supplemental oxygen Emir Kelley MD 02/27/2019 R79.89 Other specified abnormal findings of Guevara Meyers MD blood chemistry 02/26/2019 R94.31 Abnormal electrocardiogram [ECG] [EKG] Malka Aguirre MD 02/26/2019 J18.9 Pneumonia, unspecified organism Guevara Meyers MD 02/26/2019 R00.0 Tachycardia, unspecified Malka Aguirre MD 02/26/2019 A41.9 Sepsis, unspecified organism Guevara Meyers MD 02/26/2019 J96.01 Acute respiratory failure with hypoxia Malka Aguirre MD 02/26/2019 J96.01 Acute respiratory failure with hypoxia Guevara Meyers MD 02/26/2019 I10 Essential (primary) hypertension Malka Aguirre MD 02/26/2019 R79.89 Other specified abnormal findings of Guevara Meyers MD blood chemistry 01/07/2019 I10 Essential (primary) hypertension Zayra Kessler MD 01/07/2019 E78.5 Hyperlipidemia, unspecified Zayra Kessler MD 01/07/2019 E03.9 Hypothyroidism, unspecified Zayra Kessler MD 01/07/2019 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, lumbar reg 01/07/2019 J44.9 Chronic obstructive pulmonary disease, Zayra Kessler MD unspecified 01/07/2019 R82.71 Bacteriuria Zayra Kessler MD 01/07/2019 R73.9 Hyperglycemia, unspecified Zayra Kessler MD 01/07/2019 Z12.31 Encounter for screening mammogram for Zayar Kessler MD malignant neoplasm of breast Plan of Treatment Future Appointment(s):11/16/2019 1:30 pm - Emir Kelley MD at [facility]/11/2020 1:00 pm - Jerrod Pace [facility] at [facility]2005/15/2019 - Emir Kelley MDJ43.1 Panlobular emphysemaComments: Continue Stiolto INH dailyRecommend using albuterol nebulized TIDVaccination reported up to dateJ96.11 Chronic hypoxemic respiratory failureComments: Continue supplemental oxygen at 5L pulse dose with activityDiscussed results of 6MWT, test can be repeated on continuous flow as well.AllFollow up:6 months Functional Status Description No Information Available Mental Status Description No Information Available Referrals Description No Information Available
[2019-07-06 15:40] VITALS: BP 139/65
--- NOTE | 2019-07-06 16:09 | UC ---
Throat Pain/Nasal George HPI - HPI Summary HPI Summary: 78-year-old female with history of COPD presents with complaints of sinus congestion, greenish nasal discharge, and productive cough for green sputum for the past 2 days. States has had multiple admissions for pneumonia with the most recent being in February 2019. Is using her albuterol nebulizer couple times a day which is typical for her. Patient is chronically on 3 L of O2 via nasal cannula. Denies fever, chills, ear pain, sore throat, chest pain, or increased shortness of breath. - History of Current Complaint Chief Complaint: UCGeneralIllness Stated Complaint: CONGESTION SINUS Time Seen by Provider: 07/06/19 16:00 Hx Obtained From: Patient Hx Last Menstrual Period: n/a Pain Intensity: 0 - Allergies/Home Medications Allergies/Adverse Reactions: Allergies Allergy/AdvReac Type Severity Reaction Status Date / Time aspirin Allergy Palpitation Verified 07/06/19 15:40 s Home Medications: Home Medications Albuterol 2.5MG/3ML (0.083%)* [Ventolin 2.5 MG/3 ML NEB.INDERJIT*] 2.5 mg INH Q6H 08/20 [History Confirmed 07/06/19] Diclofenac Sodium 50 mg PO DAILY PRN 07/06/19 [History Confirmed 07/06/19] predniSONE 10 mg TAB [Deltasone 10 MG TAB*] 10 mg PO DAILY 07/06/19 [History Confirmed 07/06/19] PMH/Surg Hx/FS Hx/Imm Hx - Additional Past Medical History Additional PMH: Osteoporosis Endocrine History: Thyroid Disease Cardiovascular History: Hypertension Respiratory History: COPD - Surgical History Surgical History: Yes Surgery Procedure, Year, and Place: TUBAL LIGATION 1979; 2 X CATARACTS- BILATERAL EYES. BRONCHOSCOPY - Family History Known Family History: Positive: Other - THYROID DZ Negative: Cardiac Disease, Hypertension, Diabetes - Social History Occupation: Retired Lives: Alone Alcohol Use: None Substance Use Type: None Smoking Status (MU): Former Smoker Have You Smoked in the Last Year: No When Did the Patient Quit Smoking/Using Tobacco: 2012 Review of Systems All Other Systems Reviewed And Are Negative: Yes Constitutional: Negative: Fever, Chills, Fatigue Eyes: Negative: Drainage, Eye Redness ENT: Positive: Nasal Discharge, Sinus Congestion, Sinus Pain/Tenderness. Negative: Sore Throat, Ear Ache Respiratory: Positive: Cough. Negative: Shortness Of Breath Cardiovascular: Negative: Palpitations, Chest Pain Gastrointestinal: Negative: Abdominal Pain, Vomiting, Diarrhea, Nausea Genitourinary: Positive: Negative Musculoskeletal: Positive: Negative Neurological: Positive: Negative Is Patient Immunocompromised?: No Physical Exam - Summary Physical Exam Summary: GENERAL APPEARANCE: Alert and cooperative chronically ill appearing older adult female who appears to be in no acute distress. EYES: Conjunctiva clear. No drainage. EARS: External auditory canals and tympanic membranes clear, hearing grossly intact. NOSE: Moderate nasal congestion. No nasal discharge. THROAT: Pharyngeal cobblestoning. No tonsilar inflammation, swelling, exudate, or lesions. Uvula midline. NECK: Neck supple, non-tender without lymphadenopathy. CARDIAC: Normal S1 and S2. No S3, S4 or murmurs. Rhythm is regular. There is no peripheral edema, cyanosis or pallor. Extremities are warm and well perfused. Capillary refill is less than 2 seconds. Peripheral pulses intact. LUNGS: Clear to auscultation without rales, rhonchi, wheezing or diminished breath sounds. ABDOMEN: Positive bowel sounds. Soft, nondistended, nontender. No guarding or rebound. No masses or hepatosplenomegally. MUSKULOSKELETAL: ROM intact to all extremities. No joint erythema or tenderness. Normal muscular development. Normal gait. SKIN: Skin normal color, texture and turgor with no lesions or eruptions. Triage Information Reviewed: Yes Vital Signs: Initial Vital Signs Temp 98.6 F 07/06/19 15:34 Pulse 78 07/06/19 15:34 Resp 18 07/06/19 15:34 BP 139/65 07/06/19 15:34 Pulse Ox 99 07/06/19 15:34 Vital Signs Reviewed: Yes Throat Pain/Nasal Course/Dx - Course Course Of Treatment: 78-year-old female with history of COPD presents with complaints of sinus congestion, greenish nasal discharge, and productive cough for green sputum for the past 2 days. States has had multiple admissions for pneumonia with the most recent being in February 2019. Is using her albuterol nebulizer couple times a day which is typical for her. Patient is chronically on 3 L of O2 via nasal cannula. Denies fever, chills, ear pain, sore throat, chest pain, or increased shortness of breath. Afebrile. Vital signs stable. Patient had moderate nasal congestion, pharyngeal cobblestoning, no tonsillar swelling or exudate, no cervical lymphadenopathy, clear bilateral breath sounds, and otherwise unremarkable exam. Discussed with patient that without fever and with her lungs being clear have a low suspicion for pneumonia at this time however with her history of COPD and frequent pneumonia we will go ahead and start her on a course of azithromycin which she states has worked well for her in the past. She is to follow-up with her primary care provider in 3 days if symptoms are not improving. Anticipatory guidance warning symptoms are reviewed with the patient. Verbalizes understanding and agrees with plan of care. - Differential Dx/Diagnosis Provider Diagnosis: Upper respiratory infection with cough and congestion Discharge ED - Sign-Out/Discharge Documenting (check all that apply): Patient Departure All imaging exams completed and their final reports reviewed: No Studies - Discharge Plan Condition: Stable Disposition: HOME Prescriptions: Azithromyxin BYRON (NF) [Z-Byron (Zithromax) 250 mg tabs #6] 2 tab PO .TODAY, THEN 1 DAILY #6 tab Patient Education Materials: Upper Respiratory Infection (ED), COPD (Chronic Obstructive Pulmonary Disease) (ED) Referrals: Zayra Kessler MD [Primary Care Provider] - 3 Days (If no improvement in symptoms.) Additional Instructions: Your history and exam are consistent with an upper respiratory infection. With her history of COPD will be to start an antibiotic to treat the infection. Start azithromycin 2 tabs today then 1 tablet daily for the next 4 days. Drink plenty of fluids to avoid dehydration especially if you are running any fever. I would recommend using a cool mist humidifier in her room at night. Take over the counter acetaminophen (Tylenol) according to directions as needed for pain or fever. Follow up with your primary care provider in 3 days if symptoms persist. Seek immediate medical attention in the emergency room if you have fever greater than 100.5 F despite taking acetaminophen or ibuprofen, have chest pain , difficulty breathing, are unable to swallow, or have any worsening of symptoms. - Billing Disposition and Condition Condition: STABLE Disposition: Home
== END 2019-07-06 17:02 | disposition home or self-care (01) ==
LOC: UCCORT 13:48
DX: J06.9 Acute upper respiratory infection, unspecified (principal); R05 Cough; R09.81 Nasal congestion; Z88.6 Allergy status to analgesic agent; I10 Essential (primary) hypertension; J44.9 Chronic obstructive pulmonary disease, unspecified; Z87.891 Personal history of nicotine dependence
CPT/HCPCS: 99212; G0463